=== PATIENT | female | born 1995 | race African-American/Black ===

== ENCOUNTER 2017-02-12 12:47 | Emergency (ER) | payer SELFPAY ==
[~2017-02-12] VITALS: Ht 172.7 cm; Wt 59.0 kg
[2017-02-12 12:50] VITALS: BP 115/77; PULSE 87; RESP 15; TEMP 98.2; O2SAT 98
--- NOTE | 2017-02-12 12:58 | PD ---
Physical Exam Date Seen by Provider: Feb 12, 2017 Time Seen by Provider: 12:56 Narrative 21 year old female here for evaluation of headache. More severe today. Going on since two weeks but more severe today. Pain is 8/10. OTC not helping. Pressure like. No injuries. States having "bites" to her skin that are itchy and getting bigger. No other medical complains at this time. Concerned about mold in the dorm. Vitals stable at triage. Awaiting bed placement. Data Data Last Documented VS Vital Signs Date Time Temp Pulse Resp B/P (MAP) Pulse Ox O2 Delivery O2 Flow Rate FiO2 02/12/17 12:50 98.2 87 15 115/77 (90) 98 MDM Medical Record Reviewed: Yes Supervised Visit with GEOVANNA: No Dimitrios Verdin Feb 12, 2017 12:58
--- NOTE | 2017-02-12 13:14 | PD ---
HPI Chief Complaint: Headache Time Seen by Provider: 13:01 Travel History International Travel<30 days: No Contact w/Intl Traveler<30days: No Traveled to known affect area: No History of Present Illness HPI 21-year-old Afro-[place] female presents the [facility] with 2 week history of upper respiratory congestion, headache, and postnasal drip with sore throat. Patient has had some bilateral ear pain. She has had some cough but no respiratory shortness of breath. She denies fever. 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 He is not sure what may have bit her. She has minimal discomfort in these areas. Patient has no known drug allergies. PFSH Past Medical History ?: Not Social History Alcohol Use: Yes Tobacco Use: No Substance Use: No Allergies-Medications (Allergen,Severity, Reaction): Coded Allergies: No Known Allergies (Verified Allergy, Unknown, 02/12/17) Reported Meds & Prescriptions Reported Meds & Active Scripts Active Flonase Nasal [place] (Fluticasone Nasal [place]) 50 Mcg/Act [place] 100 Mcg EACH NARE BID Amoxicillin 875 Mg Tab 875 Mg PO BID 10 Days Review of Systems Except as stated in HPI: all other systems reviewed are Neg General / Constitutional: No: Fever Eyes: No: Visual changes HENT: Positive: Headaches, Sore Throat, Rhinitis, Rhinorrhea, Congestion, Earache, No: Vertigo, Lightheadedness, Nosebleed, Neck Stiffness, Neck Pain, Gingival Bleeding, Dental Difficulties, Ear Discharge Cardiovascular: No: Chest Pain or Discomfort Respiratory: Positive: Cough, No: Shortness of Breath Gastrointestinal: No: Abdominal Pain Genitourinary: No: Dysuria Musculoskeletal: No: Pain Skin: No Rash Neurologic: No: Weakness Psychiatric: No: Depression Endocrine: No: Polydipsia Hematologic/Lymphatic: No: Easy Bruising Physical Exam Narrative GENERAL: Patient is in no acute distress. SKIN: Warm and dry. Normal color. Normal turgor. Patient has multiple erythematous lesions consistent with insect bites with local reaction. No signs of cellulitis or abscess are noted. HEAD: Atraumatic. Normocephalic. Patient is maxillary sinus tenderness bilaterally. EYES: Pupils equal and round. No scleral icterus. No injection or drainage. ENT: No nasal bleeding or discharge. Mucous membranes pink and moist. Posterior pharynx is erythematous with mild swelling and bilateral tonsillar exudate. Uvula is midline. His drip is noted in the posterior pharynx. TMs are both normal. NECK: Trachea midline. Supple nontender. CARDIOVASCULAR: Regular rate and rhythm. RESPIRATORY: No accessory muscle use. Clear to auscultation. Breath sounds equal bilaterally. MUSCULOSKELETAL: Extremities without clubbing, cyanosis, or edema. No obvious deformities. NEUROLOGICAL: Awake and alert. No obvious cranial nerve deficits. Motor grossly within normal limits. Five out of 5 muscle strength in the arms and legs. Normal speech. PSYCHIATRIC: Appropriate mood and affect; insight and judgment normal. Data Data Last Documented VS Vital Signs Date Time Temp Pulse Resp B/P (MAP) Pulse Ox O2 Delivery O2 Flow Rate FiO2 02/12/17 13:20 02/12/17 13:14 Room Air 02/12/17 12:50 98.2 87 15 98 MDM Medical Decision Making Medical Screen Exam Complete: Yes Emergency Medical Condition: Yes Differential Diagnosis Insect bites with local reaction. Sinusitis. Postnasal drip. Sore throat. Narrative Course Patient will be treated with amoxicillin 875 twice a day 10 days. Patient also given Flonase nasal spray 2 sprays each nostril daily. Patient use [id number] Benadryl. Ibuprofen and Tylenol as discussed. School note is given for today. Patient is recommended to follow-up with primary care physician as discussed. Diagnosis Primary Impression: Acute non-recurrent maxillary sinusitis Additional Impression: Insect bites Qualified Codes: W57.XXXA - Bitten or stung by nonvenomous insect and other nonvenomous arthropods, initial encounter Referrals: [facility] Patient Instructions: General Instructions, Insect Bite or Sting (ED), Sinusitis (ED) Departure Forms: School Release Return to School Date: Feb 13, 2017 Additional Instructions: Patient will be treated with amoxicillin 875 twice a day 10 days. Patient also given Flonase nasal spray 2 sprays each nostril daily. Patient use [id number] Benadryl. Ibuprofen and Tylenol as discussed. School note is given for today. Patient is recommended to follow-up with primary care physician as discussed. Med/Other Pt SpecificInfo: Prescription(s) given Scripts Fluticasone Nasal [place] (Flonase Nasal [place]) 50 Mcg/Act [place] 100 MCG EACH NARE BID for Allergies, #1 BOTTLE 0 Refills Prov: Jeremias Winn MD 02/12/17 Amoxicillin (Amoxicillin) 875 Mg Tab 875 MG PO BID for Infection for 10 Days, #20 TAB 0 Refills Prov: Jeremias Winn MD 02/12/17 Disposition: 01 DISCHARGE HOME Condition: Stable Rojelio Joy Feb 12, 2017 13:14
[2017-02-12] MEDS ORDERED: AMOX875T PO (13:18)
[2017-02-12] MEDS ORDERED: FLUT1SPR5 EACH NARE (13:18)
== END 2017-02-12 13:36 | disposition home or self-care (01) ==
LOC: NEPK 12:47
DX: J01.00 Acute maxillary sinusitis, unspecified (principal); S40.862A Insect bite (nonvenomous) of left upper arm, initial encounter; S40.861A Insect bite (nonvenomous) of right upper arm, initial encounter; W57.XXXA Bitten or stung by nonvenomous insect and other nonvenomous arthropods, initial encounter
CPT/HCPCS: 99284